=== PATIENT | male | born 1945 | race Caucasian/White ===

== ENCOUNTER 2018-11-01 02:14 | Outpatient (CLI) | payer OTHER, SELFPAY ==
[2018-11-01 09:17] LABS: ALT 28 U/L (12-78); AST 22 U/L (15-37); Alkaline Phosphatase 88 U/L (46-116); Anion Gap 10.5 mmol/L (3-11); BUN 22 mg/dL (7-18); Bilirubin, Total 0.8 mg/dL (0.2-1.0); CO2 27.5 mmol/L (21.0-32.0); CREATININE 0.81 mg/dL (0.70-1.30); Calcium 8.7 mg/dL (8.5-10.1); Calculated LDL 53 mg/dL; Chloride 104 mmol/L (98-107); Cholesterol 94 mg/dL (50-200); Glucose 108 mg/dL (70-100); HDL Cholesterol 30 mg/dL (40-60); Potassium 3.5 mmol/L (3.5-5.1); Sodium 142 mmol/L (136-145); Total Protein 7.1 g/dL (6.4-8.2); Triglyceride 56 mg/dL (30-150)
== END 2018-11-01 02:34 ==
PROVIDERS: Visit Provider Nurse Practitioner Family
DX: E11.9 Type 2 diabetes mellitus without complications (principal); E78.5 Hyperlipidemia, unspecified
CPT/HCPCS: 36415; 80053; 80061; 83721

== ENCOUNTER 2018-11-07 11:39 | Outpatient (CLI) | payer OTHER, SELFPAY ==
[2018-11-07 14:41] LABS: Hemoglobin A1C 5.5 % (4.5-6.2)
== END 2018-11-07 11:59 ==
PROVIDERS: PCP Nurse Practitioner Family; Visit Provider Nurse Practitioner Family
DX: R73.01 Impaired fasting glucose (principal)
CPT/HCPCS: 36415; 83036

== ENCOUNTER 2019-11-07 03:05 | Outpatient (CLI) | payer OTHER, SELFPAY ==
[2019-11-07 09:34] LABS: BUN 18 mg/dL (7-18); CREATININE 0.89 mg/dL (0.70-1.30); Calculated LDL 46 mg/dL (<100); Chloride 101 mmol/L (98-107); Cholesterol 90 mg/dL (<200); Glucose 98 mg/dL (74-106); HDL Cholesterol 30 mg/dL (40-60); Potassium 3.3 mmol/L (3.5-5.1); Sodium 138 mmol/L (136-145); Triglyceride 71 mg/dL (<150)
== END 2019-11-07 03:25 ==
PROVIDERS: PCP Nurse Practitioner Family; Visit Provider Nurse Practitioner Family
DX: E78.5 Hyperlipidemia, unspecified (principal)
CPT/HCPCS: 36415; 80048; 80061

== ENCOUNTER 2019-12-16 03:23 | Outpatient (CLI) | payer OTHER, SELFPAY ==
[2019-12-16 11:33] LABS: Anion Gap 4.2 mmol/L (3-11); BUN 23 mg/dL (7-18); CO2 29.8 mmol/L (21.0-32.0); CREATININE 0.86 mg/dL (0.70-1.30); Calcium 9.3 mg/dL (8.5-10.1); Chloride 105 mmol/L (98-107); Glucose 103 mg/dL (74-106); Potassium 3.4 mmol/L (3.5-5.1); Sodium 139 mmol/L (136-145)
== END 2019-12-16 03:43 ==
PROVIDERS: PCP Nurse Practitioner Family; Visit Provider Nurse Practitioner Family
DX: E87.6 Hypokalemia (principal)
CPT/HCPCS: 36415; 80048

== ENCOUNTER 2020-03-29 03:03 | Outpatient (CLI) | payer OTHER, SELFPAY ==
[2020-03-29 08:29] LABS: Anion Gap 6.2 mmol/L (3-11); BUN 20 mg/dL (7-18); CO2 29.8 mmol/L (21.0-32.0); CREATININE 0.95 mg/dL (0.70-1.30); Calcium 8.8 mg/dL (8.5-10.1); Chloride 100 mmol/L (98-107); Glucose 106 mg/dL (74-106); Potassium 3.2 mmol/L (3.5-5.1); Sodium 136 mmol/L (136-145)
== END 2020-03-29 03:23 ==
PROVIDERS: PCP Nurse Practitioner Family; Visit Provider Nurse Practitioner Family
DX: E87.6 Hypokalemia (principal)
CPT/HCPCS: 36415; 80048

== ENCOUNTER 2020-05-27 04:01 | Outpatient (CLI) | payer OTHER, SELFPAY ==
[2020-05-27 09:01] LABS: BUN 17 mg/dL (7-18); CREATININE 0.9 mg/dL (0.70-1.30); Calcium 9.2 mg/dL (8.5-10.1); Chloride 101 mmol/L (98-107); Glucose 111 mg/dL (74-106); Potassium 3.6 mmol/L (3.5-5.1); Sodium 139 mmol/L (136-145)
== END 2020-05-27 04:02 | disposition home or self-care (01) ==
LOC: LBO 04:01
PROVIDERS: PCP Nurse Practitioner Family; Visit Provider Nurse Practitioner Family
DX: E87.6 Hypokalemia (principal)
CPT/HCPCS: 36415; 80048

== ENCOUNTER 2020-11-12 04:12 | Outpatient (CLI) | payer OTHER, SELFPAY ==
[2020-11-12 09:35] LABS: Anion Gap 9.9 mmol/L (3-11); BUN 24 mg/dL (7-18); CO2 29.1 mmol/L (21.0-32.0); CREATININE 0.8 mg/dL (0.70-1.30); Calcium 9.3 mg/dL (8.5-10.1); Calculated LDL 44 mg/dL (<100); Chloride 102 mmol/L (98-107); Cholesterol 90 mg/dL (<200); Glucose 106 mg/dL (74-106); HDL Cholesterol 34 mg/dL (40-60); Potassium 3.5 mmol/L (3.5-5.1); Sodium 141 mmol/L (136-145); Triglyceride 61 mg/dL (<150)
== END 2020-11-12 04:13 | disposition home or self-care (01) ==
LOC: LBO 04:12
PROVIDERS: PCP Nurse Practitioner Family; Visit Provider Nurse Practitioner Family
DX: I10 Essential (primary) hypertension (principal); E78.5 Hyperlipidemia, unspecified
CPT/HCPCS: 36415; 80048; 80061

== ENCOUNTER 2020-12-07 02:11 | Outpatient (CLI) | payer OTHER, SELFPAY ==
--- NOTE | 2020-12-07 08:00 | DI.US_ITS ---
Exam(s) US SOFT TISSUE HEAD OR NECK EXAM: US SOFT TISSUE HEAD OR NECK CLINICAL HISTORY: SCALP LESION,L98.9,? CYST,GRAPE SIZED TECHNIQUE: Ultrasound performed using standard protocol. COMPARISON: US AAA SCREENING from 07/01/2015 FINDINGS: Soft tissue ultrasound was performed to evaluate a superficial palpable mass in the upper forehead at the midline. This is well-circumscribed and measures about 16 x 14 x 11 millimeters. The contents are heterogeneous with no internal vascular flow. IMPRESSION: Indeterminate subcutaneous well-circumscribed soft tissue mass, this is most likely to represent an a typical sebaceous cyst. However, because of the heterogeneous somewhat echogenic appearance, other e tiologies are not excluded, biopsy should be considered. DATA REPOSITORY:
== END 2020-12-07 02:31 ==
PROVIDERS: PCP Nurse Practitioner Family; Visit Provider Nurse Practitioner Family
DX: L98.9 Disorder of the skin and subcutaneous tissue, unspecified (principal)
CPT/HCPCS: 76536

== ENCOUNTER → 2020-12-21 10:48 | Outpatient (BNVA) | payer OTHER, SELFPAY | PROVIDERS: PCP Nurse Practitioner Family; Referring Provider Nurse Practitioner Family; Visit Provider Surgery | DX: L72.3 Sebaceous cyst (principal) | CPT/HCPCS: 99203 ==

== ENCOUNTER → 2021-01-13 09:49 | Outpatient (BNVA) | payer OTHER, SELFPAY | PROVIDERS: PCP Nurse Practitioner Family; Referring Provider Nurse Practitioner Family; Visit Provider Physical Therapy Assistant | DX: D17.0 Benign lipomatous neoplasm of skin and subcutaneous tissue of head, face and neck (principal) | CPT/HCPCS: 11442 ==

== ENCOUNTER → 2021-01-20 09:24 | Outpatient (BNVA) | payer MEDICARE, SELFPAY | PROVIDERS: PCP Nurse Practitioner Family; Referring Provider Nurse Practitioner Family; Visit Provider Physical Therapy Assistant | DX: Z48.02 Encounter for removal of sutures (principal) ==

== ENCOUNTER → 2021-06-16 08:51 | Outpatient (BNVA) | payer MEDICARE, SELFPAY | PROVIDERS: PCP Nurse Practitioner Family; Referring Provider Nurse Practitioner Family; Visit Provider Surgery | DX: Z12.11 Encounter for screening for malignant neoplasm of colon (principal) | CPT/HCPCS: 99242 ==

== ENCOUNTER 2021-06-23 04:26 | Outpatient (CLI) | payer MEDICARE, SELFPAY ==
[2021-06-23 09:13] LABS: Abs Immature Grans 0.01 10^3/uL (0.0-0.06); Absolute Basophil Count 0.03 10^3/uL (0.0-0.2); Absolute Eosinophil Count 0.04 10^3/uL (0.0-0.7); Absolute Lymphocyte Count 1.56 10^3/uL (1.2-3.4); Absolute Monocyte Count 0.45 10^3/uL (0.1-0.8); Basophils % 0.5; Eosinophils % 0.7; HCT 41.1 % (40.0-50.0); HGB 15.1 g/dL (13.5-17.5); Immature Grans % 0.2; Lymphocytes % 27.4; MCH 34.5 pg (27.0-33.0); MCHC 36.7 % (32.0-36.0); MCV 93.8 fL (80-95); Monocytes % 7.9; Neutrophils % 63.3; Nucleated RBC 0 %; Platelet Count 191 10^3/uL (130-400); RBC 4.38 10^6/uL (4.36-5.78); RDW 11.8 % (11.8-14.1); RDW-SD 40.7 fL; WBC 5.69 10^3/uL (4.4-10.8)
[2021-06-23 09:28] LABS: ALT 17 U/L (16-63); AST 26 U/L (15-37); Albumin 4.1 g/dL (3.4-5.0); Alkaline Phosphatase 72 U/L (46-116); Anion Gap 7.7 mmol/L (3-11); BUN 18 mg/dL (7-18); Bilirubin, Total 1.2 mg/dL (0.2-1.0); CO2 28.3 mmol/L (21.0-32.0); CREATININE 0.9 mg/dL (0.70-1.30); Calcium 9.1 mg/dL (8.5-10.1); Chloride 103 mmol/L (98-107); Glucose 113 mg/dL (74-106); Potassium 3.5 mmol/L (3.5-5.1); Sodium 139 mmol/L (136-145); Total Protein 7.3 g/dL (6.4-8.2)
== END 2021-06-23 04:27 | disposition home or self-care (01) ==
LOC: LBO 04:26
PROVIDERS: PCP Nurse Practitioner Family; Visit Provider Surgery
DX: E78.5 Hyperlipidemia, unspecified (principal); H81.10 Benign paroxysmal vertigo, unspecified ear; I10 Essential (primary) hypertension; I44.7 Left bundle-branch block, unspecified; K21.9 Gastro-esophageal reflux disease without esophagitis; R73.03 Prediabetes; Z87.891 Personal history of nicotine dependence
CPT/HCPCS: 36415; 80053; 85025

== ENCOUNTER 2021-06-29 02:12 | Outpatient (CLI) | payer MEDICARE, SELFPAY ==
[2021-06-29 12:19] LABS: Source Nasal/Nares
[2021-06-29 16:49] LABS: COVID-19 PCR Negative (Negative)
== END 2021-06-29 02:13 | disposition home or self-care (01) ==
LOC: LBO 02:12
PROVIDERS: PCP Nurse Practitioner Family; Visit Provider Surgery
DX: Z20.822 Contact with and (suspected) exposure to COVID-19 (principal)
CPT/HCPCS: 87635; U0005

== ENCOUNTER 2021-07-01 06:55 | Day surgery (SDC) | payer MEDICARE, SELFPAY ==
--- NOTE | 2021-06-30 20:33 | W.COLOREPORT ---
Colonoscopy Report Pre-op diagnosis general: CRC cancer in father age 79 Post-op diagnosis procedure note: other (Sigmoid diverticula/venous congestion or varicosities of the colon/external hemorrhoids/polyps) Surgeon: Kaya Erickson Anesthesia Type: General:No Airway Complications: None Disposition: same day Prep: Miralax/Dulcolax Retraction Time: 14 Procedure Description: After informed consent was obtained the patient was taken to the procedure room and placed in a left decubitous position. Monitors were applied and a time out was done. The patients name, date of , procedure, allergies to medications and metal in their body was reviewed. The patient was then sedated. Once sedated and comfortable a rectal exam was done. External exam -no hemorrhoidal tags internal exam revealed a normal sphincter tone and no palpable masses. The scope was then introduced and retrofelexed. X1 column of grade 1internal hemorrhoids were identified. The scope was then advanced to the cecum withoutdifficulty. The TI and appendiceal orifice were identified. The prep was BBPS-2 in the sigmoid and 3 in all other segments. For total of 8. scope was then slowly retracted over 14minutes back into the rectum. Polyps were removed at: There is a flat 1 cm polyp in the cecum. This is removed with a cold snare. Clip is applied. No bleeding is noted. All specimen is retrieved. there is x2, flat, 5 mm polyp at 80 cm. This is removed with a cold forcep x2. There is also a small flat 5 mm polyp at 70 cm that is removed with a cold forcep x1. He has a few small scattered diverticuli within the sigmoid colon. There is no signs of active bleeding or infection. He does have venous congestion/varicosities noted throughout the sigmoid/left colon. Specimens are retrieved and no bleeding is noted. The scope was removed and the patient was woken up and taken back to Same day surgery in stable condition. The patient tolerated the procedure well and there were no immediate complications. Follow up: The patient should follow up in 3-5 years, path pd and if cardiopulmonary status is stable, they develop changes in bowel habits or other new gastrointestinal complaints.
--- NOTE | 2021-06-30 20:34 | PDOC.DSDIS_ITS ---
Discharge Plan Disposition Patient Disposition: HOME Condition: Good Discharge Details Reason For Visit: colon scope Attending Provider: Kaya Erickson Primary Care Provider: Clementina Colon Home Meds and New Rx's Prescriptions: No Action metoprolol succinate 50 mg tablet extended release 24 hr 50 mg PO DAILY Qty: 90 4RF losartan 100 mg tablet 100 mg PO DAILY Qty: 90 4RF chlorthalidone 25 mg tablet 25 mg PO DAILY Qty: 90 4RF atorvastatin 20 mg tablet 20 mg PO DAILY Qty: 90 4RF omeprazole 20 mg capsule,delayed release(DR/EC) 20 mg PO DAILY Qty: 90 4RF polyethylene glycol 3350 17 gram/dose powder 238 g PO ONCE Qty: 238 0RF Rx Instructions: take per colonoscopy instructions bisacodyl [Dulcolax (bisacodyl)] 5 mg tablet,delayed release (DR/EC) 5 mg PO ONCE Qty: 4 0RF Rx Instructions: take per colonoscopy instructions multivitamin [Daily Multi-Vitamin] 1 EACH tablet 1 ea PO DAILY 0RF aspirin [Aspir-81] 81 MG tablet,delayed release (DR/EC) 81 mg PO DAILY 0RF ascorbic acid (vitamin C) [Vitamin C] 500 MG tablet 500 mg PO DAILY 0RF zinc amino acid chelate 50 MG tablet 50 mg PO DAILY 0RF Discharge Instructions Additional Instructions: DSU Colonoscopy Post- Op Instructions Instructions for Everyone who is given Anesthesia: For your safety, please do the following for the next twenty-four (24) hours: *Do Not operate a motor vehicle (car, truck, motorcycle, etc.) *Do Not drink alcoholic beverages or use any recreational drugs for the first 24 hours or while taking pain medications. The medications in your body may have a reaction that can be dangerous. *Do Not make any important decisions or sign any important papers. Findings: Minor diverticula-make sure you are moving your bowels on a regular basis and avoid straining. -Minor external hemorrhoids -Polyps x4 Follow up: My office will send a letter in 2 to 3 weeks time detailing as to what type of polyps they were, and when we want to repeat the colonoscopy, provided your heart and lungs are still healthy for anesthesia. -No aspirin/NSAIDs for 72 hours. 1. No lifting over 20 pounds or strenuous activity for the first 24 hours after your procedure. After 24 hours there are no restrictions on your activity but you may feel fatigued for a few days. 2. After you arrive home you may have a light meal and return to your normal diet as you can tolerate it without feeling sick to your stomach. 3. You may have a bloated, gaseous feeling in your belly (abdomen) after a colonoscopy. Passing gas and belching will help. Walking or lying down on your left side with your knees flexed may relieve the discomfort. Call the office at [phone] (Office) or [phone] (Hospital) right away if you notice any of the following: a.Vomiting of blood or ?coffee ground stools?. b.Rectal bleeding 1Tbsp, blood clots or continuous bleeding. c.Severe belly (abdominal) pain. d.A hard distended belly (abdomen) and an inability to pass gas. 4. Please don?t expect to have a normal BM (bowel movement) for 2-3 days after your procedure. 5. If there are questions regarding the findings of your procedure, please contact your doctor 6. If you are unable to contact your doctor with a problem, contact the hospital at [phone]. 7. Continue all your regular medications unless directed otherwise. I understand the above instructions and have no questions. Signature of Patient or Adult Escort Name of Responsible Adult Escort Signature of Nurse Date/Time Activity:: see above Diet:: see above Discharge Orders Discharge Orders: Discharge Order (Routine); Ordered 06/30/21 Ordered By: Kaya Erickson
[2021-07-01 07:18] VITALS: BP 130/80; PULSE 63; RESP 16; TEMP 36.6; O2SAT 97
[2021-07-01] MEDS: Lactated Ringers 1,000 ML 80 ML IV (07:33)
--- NOTE | 2021-07-01 07:56 | W.ANESPRE ---
General Info Date of Service Date Performed: 07/01/21 Height: 5 ft 6 in Weight: 90.5 kg Body Mass Index (BMI): 32.2 Surgical Procedure: Operation Date: 07/01/21 08:20 Proposed Procedure Side Surgeon yuniel Erickson, DO Meds Allergies and Home Medications Allergies Allergy/AdvReac Type Severity Reaction Status Date / Time No Known Drug Allergies Allergy Verified 07/01/21 07:15 Home Medication Medication Instructions Recorded ascorbic acid (vitamin C) 500 mg 500 mg PO DAILY 03/05/15 tablet (Vitamin C) aspirin 81 mg tablet,delayed 81 mg PO DAILY tab 03/05/15 release (Aspir-) multivitamin (Daily Multi-Vitamin) 1 ea PO DAILY 03/05/15 zinc amino acid chelate 50 mg 50 mg PO DAILY 03/05/15 tablet atorvastatin 20 mg tablet 20 mg PO DAILY #90 tab 11/19/20 chlorthalidone 25 mg tablet 25 mg PO DAILY #90 tab 11/19/20 losartan 100 mg tablet 100 mg PO DAILY #90 tab 11/19/20 metoprolol succinate 50 mg 50 mg PO DAILY #90 tab 11/19/20 tablet,extended release 24 hr omeprazole 20 mg capsule,delayed 20 mg PO DAILY #90 cap 11/19/20 release bisacodyl 5 mg tablet,delayed 5 mg PO ONCE #4 tab 06/16/21 release (Dulcolax (bisacodyl)) polyethylene glycol 3350 17 238 g PO ONCE #238 g 06/16/21 gram/dose oral powder Current Visit Medications: Current Medications Generic Name Dose Route Start Last Admin Trade Name Freq PRN Reason Stop Dose Admin Hyoscyamine Sulfate 0.125 mg 06/30/21 20:32 Hyoscyamine 0.125 Mg Sl/Oral/Chew SL DIRECTED PRN Ringer's Solution 1,000 mls @ 80 mls/hr 07/01/21 06:00 07/01/21 07:33 IV 07/21/21 23:59 80 mls/hr INFUSION ANSELMO Administration IV Miscellaneous Supplies 1 each 07/01/21 06:00 Iv Access IV 07/21/21 23:59 DIRECTED ANSELMO Ondansetron HCl 4 mg 06/30/21 20:32 Ondansetron 4 Mg/2 Ml Vial IVP Q4H PRN PRN Nausea / Vomiting Sodium Chloride 0 ml 07/01/21 06:00 Normal Saline Flush 10 Ml Syr IV 07/21/21 23:59 PRN PRN Sodium Chloride 0 ml 07/01/21 06:00 Normal Saline 10 Ml Vial IJ 07/21/21 23:59 DIRECTED PRN Sterile Water 0 ml 07/01/21 06:00 Water,Injection,Sterile 10 Ml Vial IJ 07/21/21 23:59 DIRECTED PRN PFSH Active Problems Active Problems: Problem Status Onset Code Essential hypertension I10 Hyperlipidemia E78.5 GERD (gastroesophageal reflux disease) K21.9 Nodule of skin of head R22.0 Sebaceous cyst L72.3 Family history of colon cancer in father Z80.0 Medical History Medical History Benign paroxysmal positional vertigo Former cigarette smoker 30pack/yr hx; quit 1986 Left bundle branch block Negative exercise stress test Prediabetes Surgical History Surgical History History of colonoscopy S/P appendectomy (~1960) Status post laser cataract surgery of both eyes Tobacco Smoking/Tobacco Use Status: Former Tobacco Use Passive smoking exposure: Yes Second hand exposure: Yes Alcohol Alcohol Intake: current Alcohol intake frequency: holidays/special occasions only Alcohol type: hard liquor Substance Use Substance use: Never Substance use type: does not use Vital Signs and Lab Results Vital Signs Most Recent Vital Signs in EMR: Most Recent Vital Signs Temp Pulse Resp BP Pulse Ox 36.6 C 63 16 130/80 97 07/01/21 07:18 07/01/21 07:18 07/01/21 07:18 07/01/21 07:18 07/01/21 07:18 Lab Results Blood Type / Crossmatch: No Data to Display Complete Blood Count: White Blood Count 5.69 10^3/uL (4.4-10.8) 06/23/21 09:08 06/23/21 Red Blood Count 4.38 10^6/uL (4.36-5.78) 06/23/21 09:08 06/23/21 Hemoglobin 15.1 g/dL (13.5-17.5) 06/23/21 09:08 06/23/21 Hematocrit 41.1 % (40.0-50.0) 06/23/21 09:08 06/23/21 Platelet Count 191 10^3/uL (130-400) 06/23/21 09:08 06/23/21 Complete Metabolic Panel: Sodium Level 139 mmol/L (136-145) 06/23/21 09:08 06/23/21 Potassium Level 3.5 mmol/L (3.5-5.1) 06/23/21 09:08 06/23/21 Chloride Level 103 mmol/L (98-107) 06/23/21 09:08 06/23/21 Carbon Dioxide Level 28.3 mmol/L (21.0-32.0) 06/23/21 09:08 06/23/21 Blood Urea Nitrogen 18 mg/dL (7-18) 06/23/21 09:08 06/23/21 Creatinine 0.9 mg/dL (0.70-1.30) 06/23/21 09:08 06/23/21 Estimated GFR/1.73 m2 >= 60.00 (mL/min/1.73m2) 06/23/21 09:08 06/23/21 Calcium Level 9.1 mg/dL (8.5-10.1) 06/23/21 09:08 06/23/21 Albumin 4.1 g/dL (3.4-5.0) 06/23/21 09:08 06/23/21 Glucose Level 113 mg/dL (74-106) H 06/23/21 09:08 06/23/21 Liver Function Panel: Alanine Aminotransferase (ALT/SGPT) 17 U/L (16-63) 06/23/21 09:08 06/23/21 Aspartate Amino Transf (AST/SGOT) 26 U/L (15-37) 06/23/21 09:08 06/23/21 Coagulation Panel: No Data to Display Cardiac Panel: No Data to Display Arterial Blood Gas: No Data to Display Venous Blood Gas: No Data to Display Pancreas Panel: No Data to Display Thyroid Panel: No Data to Display Infectious Disease: Coronavirus (COVID-19)(PCR) Negative (Negative) 06/29/21 09:57 06/29/21 Coronavirus 2019 Source Nasal/Nares 06/29/21 09:57 06/29/21 Blood Cultures: No Data to Display Toxicology Panel: No Data to Display Anesthesia Assessment and Plan Anesthesia History Personal History: No History of Anesthesia Complications Family History: No Family History of Anesthesia Complications Exercise Tolerance Exercise Tolerance: Metabolic Equivalents>4 Pertinent Negatives Pertinent Negatives: No Symptoms of GERD Cardiac & Pulmonary Exam Cardiac Exam: Normal S1/S2 Heart Sounds Pulmonary Exam: Clear Bilateral Breath Sounds Implantable Cardiac Device Does patient have a Pacemaker or an ICD?: No Airway Exam Known Difficult Airway: No Mallampati Class: 2 Mouth Opening: Normal (> 3cm) Thyromental Distance: Greater than 3 cm Facial Hair: Full Bee Neck Range of Motion: Full ROM Neck Circumference: Normal Teeth Condition: Removable Dentures/Plates Upper ASA Classification ASA Score: ASA 2 Emergency Case?: No NPO Status NPO Status: NPO Clears >2 hours, Solids >8 hours Anesthesia Plan Resuscitation Status: Full Code Anesthesia Technique: General Anesthesia Airway Planned: Natural Airway Monitors Used: Standard Monitors
[2021-07-01 08:01] VITALS: BMI 32.2
--- NOTE | 2021-07-01 08:24 | BOWEL_PTH ---
PATIENT: Bart Uribe LOC: [facility] U#:[id number] AGE/SX: 75/M ROOM: RE07/01/[address]: Kaya Erickson : 1945 BED: DIS: 07/01/2021 SPEC #: [id number] RECD: 07/01/21 12:27 STATUS: ROBIN REQ #: [id number] FERNANDO: 07/01/21 08:[address]: Kaya Erickson DEPT: Surgical Specimen RECD BY: Nava Ellison ENTERED: 07/01/21 12:28 SP TYPE: Bowel OTHR DR: Clementina Colon, GISELLE Tissues: 1 - BIOPSY BOWEL 2 - BIOPSY BOWEL 3 - BIOPSY BOWEL Procedures: GROSS AND MICRO LEVEL 4 Comments: [id number]
[2021-07-01 08:46] VITALS: BP 75/41; PULSE 53; RESP 20; TEMP 36.6; O2SAT 95
[2021-07-01 09:07] VITALS: BP 99/51; PULSE 53; RESP 18; TEMP 36.1; O2SAT 96
[2021-07-01 09:35] VITALS: BP 124/79
--- NOTE | 2021-07-01 10:42 | W.ANESPOSTOP ---
Postoperative Evaluation Date, Time and Location Date Performed: 07/01/21 Time Performed: 10:42 Patient Location: Day Surgery Unit Vital Signs Most Recent Imported Vital Signs: Most Recent Vital Signs Temp Pulse Resp BP Pulse Ox 36.1 C L 53 L 18 124/79 96 07/01/21 09:07 07/01/21 09:07 07/01/21 09:07 07/01/21 09:35 07/01/21 09:07 Pain Score Most Recent Pain Score: Most Recent Pain Score Pain Level 0 07/01/21 09:07 Assessment Mental Status: Awake (Alert & Oriented to Patient Baseline) Airway and Respiratory Function: Patent airway with normal (patient baseline) respiratory exam Cardiovascular Function: Hemodynamically Stable Hydration Status: Adequately Hydrated Nausea & Vomiting: No Nausea or Vomiting Pain: Pt. Denies Any Pain Peripheral Nerve Block: Patient did not receive a nerve block
== END 2021-07-01 09:45 | disposition home or self-care (01) ==
LOC: SUR 06:55
PROVIDERS: PCP Nurse Practitioner Family; Visit Provider Surgery
PROC: 0DJD8ZZ Inspection of Lower Intestinal Tract, Via Natural or Artificial Opening Endoscopic (ICD-10-PCS; CPT 45378; principal; 2021-07-01 08:15)
DX: Z12.11 Encounter for screening for malignant neoplasm of colon (principal); Z80.0 Family history of malignant neoplasm of digestive organs; K57.30 Diverticulosis of large intestine without perforation or abscess without bleeding; K63.5 Polyp of colon; K64.4 Residual hemorrhoidal skin tags; K64.0 First degree hemorrhoids; I10 Essential (primary) hypertension; E78.5 Hyperlipidemia, unspecified; K21.9 Gastro-esophageal reflux disease without esophagitis; K63.89 Other specified diseases of intestine
CPT/HCPCS: 45380; 45385; 88305

== ENCOUNTER 2023-01-22 08:32 | Outpatient (CLI) | payer MEDICARE, SELFPAY ==
[2023-01-22 07:39] LABS: Hemoglobin A1C 5.4 % (<5.7)
[2023-01-22 09:52] LABS: Anion Gap 8.9 mmol/L (3-11); BUN 23 mg/dL (7-18); CO2 28.1 mmol/L (21.0-32.0); Calcium 9.2 mg/dL (8.5-10.1); Calculated LDL 47 mg/dL (<100); Chloride 101 mmol/L (98-107); Cholesterol 96 mg/dL (<200); Estimated GFR 78.49 (mL/min/1.73m2); Glucose 105 mg/dL (74-106); HDL Cholesterol 35 mg/dL (40-60); Potassium 3.2 mmol/L (3.5-5.1); Sodium 138 mmol/L (136-145); TSH (W/Ref FT4) 2.22 uIU/mL (0.36-3.74); Triglyceride 74 mg/dL (<150)
[2023-01-22 19:21] LABS: PSA, Screening 1.5 ng/mL (<=6.5)
== END 2023-01-22 08:33 | disposition home or self-care (01) ==
LOC: LBO 08:33
PROVIDERS: PCP Nurse Practitioner Family; Visit Provider Nurse Practitioner Family
DX: Z00.00 Encounter for general adult medical examination without abnormal findings (principal); Z12.5 Encounter for screening for malignant neoplasm of prostate
CPT/HCPCS: 36415; 80048; 80061; 84153; 83036; 84443

== ENCOUNTER 2023-02-09 02:16 | Outpatient (CLI) | payer MEDICARE, SELFPAY ==
[2023-02-09 07:55] LABS: Potassium 3.7 mmol/L (3.5-5.1)
== END 2023-02-09 02:17 | disposition home or self-care (01) ==
PROVIDERS: PCP Nurse Practitioner Family; Visit Provider Nurse Practitioner Family
DX: E87.6 Hypokalemia (principal)
CPT/HCPCS: 36415; 84132

== ENCOUNTER 2024-02-13 03:19 | Outpatient (CLI) | payer MEDICARE, SELFPAY ==
[2024-02-13 08:33] LABS: Anion Gap 9.9 mmol/L (3-11); BUN 22 mg/dL (7-18); CO2 28.1 mmol/L (21.0-32.0); CREATININE 0.9 mg/dL (0.70-1.30); Calcium 9.2 mg/dL (8.5-10.1); Chloride 105 mmol/L (98-107); Estimated GFR 88.51 (mL/min/1.73m2); Glucose 103 mg/dL (74-106); Potassium 3.4 mmol/L (3.5-5.1); Sodium 143 mmol/L (136-145)
== END 2024-02-13 03:20 | disposition home or self-care (01) ==
LOC: LBO 03:19
PROVIDERS: PCP Nurse Practitioner Family; Visit Provider Emergency Medicine
DX: I10 Essential (primary) hypertension (principal); Z23 Encounter for immunization
CPT/HCPCS: 36415; 80048

== ENCOUNTER 2025-01-30 09:52 | Outpatient (CLI) | payer MEDICARE, SELFPAY ==
[2025-01-30 16:50] LABS: Anion Gap 8.6 mmol/L (3-11); BUN 20 mg/dL (7-18); CO2 28.4 mmol/L (21.0-32.0); Calcium 8.6 mg/dL (8.5-10.1); Calculated LDL 30 mg/dL (<100); Chloride 101 mmol/L (98-107); Cholesterol 87 mg/dL (<200); Estimated GFR 91.15 (mL/min/1.73m2); Glucose 101 mg/dL (74-106); HDL Cholesterol 32 mg/dL (>or=40); Potassium 3.3 mmol/L (3.5-5.1); Sodium 138 mmol/L (136-145); Triglyceride 125 mg/dL (<150); Vitamin B12 285 pg/mL (193-986)
[2025-02-02 09:39] LABS: PSA, Screening 1.4 ng/mL (<=6.5)
== END 2025-01-30 09:53 | disposition home or self-care (01) ==
LOC: LOS 09:53
PROVIDERS: PCP Nurse Practitioner Family; Visit Provider Nurse Practitioner Family
DX: K21.9 Gastro-esophageal reflux disease without esophagitis (principal); Z00.00 Encounter for general adult medical examination without abnormal findings; I10 Essential (primary) hypertension; Z12.5 Encounter for screening for malignant neoplasm of prostate
CPT/HCPCS: 36415; 80048; 80061; 84153; 82607